=== PATIENT | female | born 1960 | race Caucasian/White ===

== ENCOUNTER → 2017-10-08 | Emergency (ER) | payer BC ==
[~2017-10-08] MED LIST: IBUPROFEN 800 MG TAB PO ONE; OXYCODONE/APAP 5/325 TAB PO ONE
--- NOTE | 2017-10-08 13:59 | EDPHY ---
H & P Time Seen by Provider: 10/08/17 13:58 Constitutional: Initial Vital Signs Temperature (C) 37.1 C 10/08/17 13:59 Heart Rate 73 10/08/17 13:59 Respiratory Rate 18 10/08/17 13:59 Blood Pressure 143/100 H 10/08/17 13:59 O2 Sat (%) 92 10/08/17 13:59 O2 Delivery Mode Room Air Allergies/Adverse Reactions: codeine Allergy (Verified 10/08/17 13:56) sumatriptan Allergy (Verified 10/08/17 13:56) Home Medications: Medication Instructions Recorded Atorvastatin Calcium 10/08/17 Metformin HCl 10/08/17 Venlafaxine 37.5MG (*) 10/08/17 oxyCODONE IR [Oxycodone Ir (*)] 5 - 10 mg PO Q6 PRN #20 tab 10/08/17 Medical Decision Making ED Course/Re-evaluation: CHIEF COMPLAINT: Left wrist and head injury HISTORY OF PRESENT ILLNESS: Healthy 57-year-old female who was walking her son' s roommate's dog. She slipped on black ice. She broke her fall with her left hand and wrist and is having pain on the hypothenar little finger side of her hand in her wrist. She broke that wrist 20 years ago and has had no problems chronically. She also hit the back of her head. She denies loss of consciousness, denies retrograde or antegrade amnesia, denies nausea vomiting, denies any scalp trauma, denies any neurologic problems. She specifically would not have come here it was only her head. She has had a few concussions over her lifetime. REVIEW OF SYSTEMS: A 10 point review of systems was performed and is negative with the exception of the elements mentioned in the history of present illness. PHYSICAL EXAM: HR, BP, O2 Sat, RR. Temp noted General Appearance: Alert, well hydrated, appropriate, and non-toxic appearing. Head: Atraumatic without scalp tenderness or obvious injury Eyes: Pupils equal, round, reactive to light and accommodation, EOMI, no trauma , no injection. Ears: Clear bilaterally, no perforation, normal landmarks Nose: Atraumatic, no rhinorrhea, clear. Throat: There is no erythema or exudates, no lesions, normal tonsils, mucus membranes moist. Neck: Supple, 2+ carotid upstroke, nontender, no lymphadenopathy. Respiratory: No retractions, no distress, no wheezes, and no accessory muscle use. Lungs are clear to auscultation bilaterally. Cardiovascular: Regular rate and rhythm, no murmurs, rubs, or gallops. Bilateral carotid, radial, dorsalis pedis, and posterior tibial pulses intact. Good capillary refill all extremities. Gastrointestinal: Abdomen is soft, nontender, non-distended, no masses, no rebound, no guarding, no peritoneal signs. Musculoskeletal: Left wrist is somewhat swollen and painful range of motion but she has reasonable range of motion. Otherwise, Normal active ROM of all extremities, atraumatic. Neurological: Alert, appropriate, and interactive. The patient has normal DTRs and non-focal cranial nerves, motor, sensory, and cerebellar exam. Skin: No rashes, good turgor, no nodules on palpation. Past medical history: Prior concussions and left wrist fracture in the remote past Past surgical history: Noncontributory Family history: Noncontributory Social history: , does not abuse tobacco drugs or alcohol DIAGNOSTICS/PROCEDURES/CRITICAL CARE TIME: Study: Three views of the left hand in three views of the left wrist Indication: Trauma Results: After viewing the images myself on the PACS system. My interpretation of the images is: Dorsal triquetrum fracture. I have discussed the above x-rays with the radiologist. DIFFERENTIAL DIAGNOSIS: Includes but is not limited to: Hand fracture, wrist fracture, sprain, strain, soft tissue injury, contusion, dislocation MEDICAL DECISION MAKING: This patient is in no distress. She has pain of her left wrist and left hand. She did hit her head but is negative on the nexus and [place] head CT rules set. X-rays of the hand and wrist are pending. This patient has an acute dorsal triquetrum fracture minimally displaced. I confirmed the x-ray with Dr. Dangelo Guzmán. We put her in a Velcro thumb spica and she will follow up with Orthopedic surgery. I have also given her some pain medicine. - Data Points Medications Given: Discontinued Medications Ibuprofen (Motrin) 800 mg PO EDNOW ONE Stop: 10/08/17 14:09 Last Admin: 10/08/17 14:22 Dose: 800 mg Oxycodone/Acetaminophen (Percocet 5/325) 2 tab PO EDNOW ONE Stop: 10/08/17 14:09 Last Admin: 10/08/17 14:23 Dose: 2 tab Departure - Departure Disposition: Home, Routine, Self-Care Clinical Impression: Fracture of triquetrum of left wrist, closed Qualifiers: Encounter type: initial encounter Fracture alignment: nondisplaced Qualified Code(s): S62.115A - Nondisplaced fracture of triquetrum [cuneiform] bone, left wrist, initial encounter for closed fracture Condition: Good Instructions: Hand Fracture (ED), Wrist Fracture in Adults (ED) Referrals: Fany Busby MD [Primary Care Provider] - As per Instructions Mac Langford MD [Medical Doctor] - 5-7 days, call for appt. Prescriptions: oxyCODONE IR [Oxycodone Ir (*)] 5 - 10 mg PO Q6 PRN #20 tab PRN Reason: Pain, Severe
[2017-10-08 14:09] VITALS: RESP 18; TEMP 98.8
[2017-10-08 14:58] VITALS: BP 143/86; PULSE 68; O2SAT 94
== END | disposition home or self-care (01) ==
LOC: CED 13:51
DX: S62.115A Nondisplaced fracture of triquetrum [cuneiform] bone, left wrist, initial encounter for closed fracture (principal); W01.0XXA Fall on same level from slipping, tripping and stumbling without subsequent striking against object, initial encounter; Y99.8 Other external cause status; Y93.K1 Activity, walking an animal
CPT/HCPCS: 73110-PO; 73130-PO; L3807

== ENCOUNTER → 2018-06-09 | Outpatient (CLI) | payer BC | LOC: BMCIMAGING 14:08 | PROVIDERS: ATTEND Family Medicine | DX: Z12.31 Encounter for screening mammogram for malignant neoplasm of breast (principal) ==